=== PATIENT | male | born 1965 | race Two or more races ===

== ENCOUNTER → 2024-09-29 | Outpatient (CLI) | payer BC, SELFPAY ==
--- NOTE | 2024-09-29 11:45 | XR_ITS ---
Examination: Testicular sonography complete Technique: Multiple grayscale sonographic images testes, assessment arterial inflow venous outflow Doppler spectral analysis carful analysis Exam date and time: September 29, 2024 1131 hrs. Indications: Onset left testicular pain and swelling beginning one year ago Findings: Right testis 4.2 x 2.8 x 2.4 cm Epididymis 14 mm Arterial flow testicle. No testicular mass. Mild right lateral varicoceles Left testis 3.8 x 2.1 x 2.7 cm Epididymis 11 mm Arterial flow testicle. No testicular mass Moderate lateral varicoceles Left inguinal hernia with bowel anterior to the left testicle Impression: No testicular torsion or testicular mass Bilateral varicoceles Bowel containing left inguinal hernia
== END | disposition home or self-care (01) ==
PROVIDERS: PCP Physician Assistant; Referring Provider Surgery; Visit Provider Surgery
DX: I86.1 Scrotal varices (principal); K40.90 Unilateral inguinal hernia, without obstruction or gangrene, not specified as recurrent
CPT/HCPCS: 76870

== ENCOUNTER 2025-08-11 13:23 | Emergency (ER) | payer BC, SELFPAY ==
[2025-08-11 14:02] VITALS: BP 160/85; PULSE 97; RESP 20; TEMP 36.7; O2SAT 95
--- NOTE | 2025-08-11 14:02 | XR_ITS ---
Examination: CT abdomen and pelvis without contrast. Coronal 3-D reconstructions. Sagittal 2-D reconstructions. Date and time of exam: August 11, 2025, 1420 hours, comparison April 16, 2024 INDICATIONS: Right-sided flank pain, history left paracentral anterior abdominal wall hernia defect CTDI: vol (mGy): 16.4 DLP: (mGycm): 1152 Technique: Axial images of the abdomen have been obtained, 3 mm slice thickness Intravenous contrast material has not been administered. Low dose protocols were performed. One or more of the following dose reduction techniques were used; automated exposure control, adjustment of the mA and/or KV according to patient size, use of iterative reconstruction technique. Findings: Liver is irregular in contour with fatty infiltration Mildly hyperdense gallbladder Spleen is not enlarged No pancreatic or adrenal mass 8.8 cm left renal cyst No hydronephrosis or ureteral calculi Aorta normal size, tiny subcentimeter para-aortic lymph nodes Again noted anterior abdominal wall hernia defect, 6.2 cm containing bowel but no incarcerated bowel Second more caudad hernia defect, 5.3 cm also containing bowel, axial image 172, early incarceration of the bowel not excluded although no bowel obstruction noted Colonic diverticulosis without definite diverticulitis Marked thickening of the urinary bladder wall up to 8 mm Mild prostatomegaly IMPRESSION: Hernia defects as above, the more caudad hernia defect, axial image 172 contains colon which may be partially incarcerated, clinical correlation advised, recommend surgical consultation
[2025-08-11 14:23] LABS: Collection Type, Urine Clean Catch; Squamous Epithelial Cell,Urine 0 /hpf (0-5)
[2025-08-11 14:27] LABS: Basophils # (Auto) 0.0 Thou/mm3 (0.0-0.2); Basophils % (Auto) 0 % (0-2.5); Eosinophils # (Auto) 0.1 Thou/mm3 (0.0-0.5); Eosinophils % (Auto) 1 % (0-10); Hematocrit 44.9 % (41.0-53.0); Hemoglobin 15.1 g/dL (13.5-16.0); Immature Granulocytes Auto 0.04 Thou/mm3 (0.00-0.00); Lymphocytes # (Auto) 1.7 Thou/mm3 (1.0-4.8); Lymphocytes % (Auto) 26 % (10-50); Mean Corpuscular HGB Conc 33.6 g/dl (31.0-37.0); Mean Corpuscular Hemoglobin 30.6 pg (25.0-35.0); Mean Corpuscular Volume 91 fL (80-100); Monocytes # (Auto) 0.4 Thou/mm3 (0.0-0.8); Monocytes % (Auto) 6 % (0-12); Neutrophils # (Auto) 4.3 Thou/mm3 (1.8-7.7); Neutrophils % (Auto) 65 % (37-80); Nucleated Red Blood Cell # 0.00 Thou/mm3 (0.00-0.00); Nucleated Red Blood Cell % 0 /100 WBC (0); Platelet Count 231 Thou/mm3 (140-440); RDW Standard Deviation 50.7 fL (35.1-43.9); Red Blood Count 4.94 Miln/mm3 (4.50-5.90); White Blood Count 6.6 Thou/mm3 (3.8-10.6)
[2025-08-11 14:32] LABS: Bilirubin,Urine Negative (Negative); Blood,Urine Trace (Negative); Clarity,Urine Clear (Clear/Hazy); Color,Urine Lt-Yellow (Lt Yel-Yel); Culture Indicated,Urine Not Indicated; Glucose, Urine 3+ (Negative); Ketones,Urine Negative (Negative); Leukocyte Esterase,Urine Negative (Negative); Nitrite,Urine Negative (Negative); PH,Urine 6.0 (5.0-7.0); Protein,Urine Trace (Neg - Trace); RBC,Urine 1 /hpf (0-3); Specific Gravity,Urine 1.009 (1.001-1.035); Urobilinogen,Urine Negative mg/dL (0.0-1.0); WBC,Urine < 1 /hpf (0-5)
[2025-08-11] MEDS: KETOROLAC INJ 30 MG/ML VIAL IM (14:36)
[2025-08-11 14:46] LABS: Alanine Aminotransferase 62 U/L (10-49); Albumin, Serum 5.0 gm/dL (3.5-5.0); Albumin/Globulin Ratio 1.4 (1.2-2.2); Alkaline Phosphatase 81 U/L (46-116); Anion Gap 13 (7-16); Aspartate Amino Transferase 59 U/L (0-34); BUN/Creatinine Ratio 8 Ratio (12-20); Bilirubin,Total 0.5 mg/dL (0.3-1.2); Blood Urea Nitrogen < 5 mg/dL (9-23); Calcium 10.0 mg/dL (8.3-10.6); Calcium (Corrected) 10.0 mg/dL (8.5-10.1); Carbon Dioxide 26.0 mMol/L (20.0-31.0); Chloride 102 mMol/L (98-107); Creatinine (Component) 0.6 mg/dL (0.6-1.3); Globulin 3.7 gm/dL (2.3-3.5); Glucose 112 mg/dL (74-106); Lipase 24 U/L (12-53); Osmolality,Calculated 279 (275-295); Potassium 4.5 mMol/L (3.4-5.1); Sodium 141 mMol/L (136-145); Total Protein 8.7 gm/dL (5.7-8.2); eGFR > 60 See Note
--- NOTE | 2025-08-11 15:57 | PD.EDABDPN ---
ED Abdominal Pain RME/HPI General Chief Complaint: Abdominal Pain Stated complaint: RT SIDE ABD PAIN SINCE 5DAYS Time seen by provider: 08/11/25 14:02 Arrival date/time: 08/11/25 13:23 59-year-old male with medical history significant for diabetes, hypertension, hypercholesterolemia with history of previous hernia surgery presents with concerns of right sided abdominal pain ongoing since Saturday Limitations: no limitations Related Data Home Medications ?Medication ?Instructions ?Recorded ?Confirmed hydrochlorothiazide 25 mg tablet 25 mg PO DAILY ##0 05/20/13 11/22/22 atorvastatin 20 mg tablet 20 mg PO QDAY 02/29/20 11/22/22 sitagliptin phos 50 mg-metformin 1 tab PO BID 02/29/20 11/22/22 ER 1,000 mg tablet,extend rel 24h mp (Janumet XR) empagliflozin 10 mg tablet 10 mg PO QAM 05/23/20 11/22/22 (Jardiance) lisinopril 2.5 mg tablet 2.5 mg PO QDAY 11/22/22 11/22/22 Previous Rx's ?Medication ?Instructions ?Recorded ascorbate calcium (vitamin C) 500 500 mg PO BID #60 tabs 05/27/20 mg tablet docusate sodium 100 mg capsule 100 mg PO BID #60 caps 05/27/20 (Colace) hydrocodone 5 mg-acetaminophen 325 1 tab PO Q6H PRN pain #20 tabs 05/27/20 mg tablet ([place]) zinc sulfate 50 mg zinc (220 mg) 220 mg (4.4 x 50 mg zinc (220 mg)) 05/27/20 capsule PO QDAY #30 caps clindamycin HCl 150 mg capsule 450 mg (3 x 150 mg) PO TID #90 caps 06/05/20 hydrocodone 5 mg-acetaminophen 325 1 tab PO BID PRN pain #10 tabs 08/11/25 mg tablet ibuprofen 800 mg tablet 800 mg PO TID PRN pain #30 tabs 08/11/25 Allergies Allergy/AdvReac Type Severity Reaction Status Date / Time No Known Allergies Allergy Verified 07/29/23 11:29 Review of Systems Review of Systems Systems Reviewed: All systems reviewed, normal except as documented Constitutional Constitutional: Reports system reviewed and no additional complaints, except as documented, Denies fever(s) and Denies headache(s) Eyes Eyes: Reports system reviewed and no additional complaints, except as documented and Denies blurry vision ENT Ears, Nose, Mouth, and Throat: Reports system reviewed and no additional complaints, except as documented, Denies headache(s), Denies nasal congestion and Denies nasal discharge Cardiovascular Cardiovascular: Reports system reviewed and no additional complaints, except as documented, Denies chest pain and Denies dyspnea Respiratory Respiratory: Reports system reviewed and no additional complaints, except as documented, Denies chest congestion, Denies cough and Denies dyspnea Gastrointestinal Gastrointestinal: Reports system reviewed and no additional complaints, except as documented and Reports abdominal pain Integumentary/Breasts Skin/Breast: Reports system reviewed and no additional complaints, except as documented and Denies rash Neurologic Neurologic: Reports system reviewed and no additional complaints, except as documented, Reports as per HPI and Denies headache(s) Past Medical History Past Medical History NEUROLOGIC: Negative Neurological Disorders, Cerebrovascular Accident, Transient Ischemic Attacks (TIA) or Seizures CARDIAC: Positive Cardiac Disorders, Hypercholesterolemia and Hypertension; Negative Myocardial Infarction, Cardiac Arrhythmia or Congestive Heart Failure RESPIRATORY: Negative Chronic Obstructive Pulmonary Disease (COPD), Asthma or Emphysema GASTROINTESTINAL: Negative Gastrointestinal Disorders, Liver Cancer or Pancreatic Cancer GENITOURINARY: Negative Genitourinary Disorders or Renal Disease MUSCULOSKELETAL: Negative Musculoskeletal Disorders or Muscular Dystrophy ENT: Negative Blind or Deafness ENDOCRINE: Positive Diabetes Mellitus Type 2; Negative Endocrine Disorders or Diabetes Mellitus Type 1 HEMATOLOGIC: Negative Blood Disorders, Anemia or Sickle Cell Disease PSYCHO/SOCIAL: Negative Psychiatric Problems OTHER HISTORY: Negative Autoimmune Disease, Down Syndrome, Developmental Delay, Blood Transfusions, Blood Transfusion Reaction or Anesthesia Reactions Surgical History SURGICAL: Negative Cardiac Surgery, Endocrine Surgery, Ear Surgery, Abdominal Surgery, Nephrectomy, Joint Replacement, Mastectomy or Vasectomy Social History SMOKING STATUS: Never smoker SUBSTANCE USE: does not use ED Exam General Limitations: Present no limitations General appearance: Present alert and in no apparent distress Head Head exam: Present atraumatic Eye Eye exam: Present normal appearance, PERRL and EOMI ENT ENT exam: Present normal exam, normal oropharynx and mucous membranes moist Neck Neck exam: Present normal inspection, full ROM and trachea midline Chest Chest inspection: Present normal inspection and symmetric chest wall rise Respiratory Respiratory exam: Present normal lung sounds bilaterally Cardiovascular Cardiovascular exam: Present regular rate, normal rhythm and normal heart sounds Abdominal Exam Abdominal exam: Present soft, tenderness and normal bowel sounds; Absent distention, guarding, rebound, rigidity, Almeida's sign or tenderness at McBurney's Point Abdominal tenderness: Present RLQ Extremities Exam Extremities exam: Present normal inspection and full ROM Back Exam Back exam: Present normal inspection and full ROM Neurological Exam Neurological exam: Present alert, oriented X3 and CN II-XII intact Psychiatric Psychiatric exam: Present normal affect and normal mood Skin Skin exam: Present warm, dry, intact and normal color Course Quality Measures none Orders Category Date Time Status Consult to General Surgery Stat Cons 08/11/25 16:[address] abdomen pelvis wo con Stat Exams 08/11/25 14:02 Completed CBC Stat Lab 08/11/25 14:08 Completed Comprehensive Metabolic Panel Stat Lab 08/11/25 14:08 Completed Lipase Stat Lab 08/11/25 14:08 Completed UA, C/S IF [Urinalysis, C/S if Indicated] Stat Lab 08/11/25 14:15 Completed Ketorolac Inj [Toradol Inj] Med 08/11/25 14:02 Discontinued 30 mg IM X1 ONE Vital Signs Vital signs: Vital Signs Temperature 98.0 F 08/11/25 14:02 Pulse Rate 97 08/11/25 14:02 Respiratory Rate 20 08/11/25 14:02 Blood Pressure 160/85 H 08/11/25 14:02 Pulse Oximetry (%) 95 08/11/25 14:02 Oxygen Delivery Method Room Air 08/11/25 14:02 O2 saturation 95% room air within normal limits Abdominal Pain MDM MDM Narrative MDM Narrative:: 59-year-old male with medical history significant for diabetes, hypertension, hypercholesterolemia with history of previous hernia surgery presents with concerns of right sided abdominal pain ongoing since Saturday On exam patient does not appear ill or toxic in no acute distress Lab work and imaging obtained I reviewed the patient's labs and imaging Consultation: I spoke with Dr Vásquez who came to evaluate the patient he felt the patient to be discharged home at this time did not any acute intervention surgically At time of discharge patient well-appearing does not appear ill or toxic no acute distress Patient data External records reviewed:: [facility] previous records Clinical information provided by:: patient Social determinants that could affect healthcare access:: none Patient has the following chronic illnesses:: None How is presenting disease/condition affected by chronic disease/condition?: no chronic disease Evaluation data The following diagnostics were reviewed and interpreted by me:: lab results and radiology exam(s) Lab and/or radiology exams considered but not ordered:: Labs radiology obtained Interpretation Summary: By me Medications / Prescriptions Medications or Prescriptions considered but not ordered:: Given Medication administrations:: Medication Administration History Discontinued Medications Ketorolac Tromethamine (Ketorolac Inj 30 Mg/Ml Vial) 30 mg IM X1 ONE Stop: 08/11/25 14:03 Last Admin: 08/11/25 14:36 Dose: 30 mg Documented By: GM Given Consultations Consultation(s) initiated? (list below): Yes Consultation #1 (Physician, Specialty, Details): Dr Vásquez Surgeon Diagnosis Differential diagnosis abdominal pain: abdominal pain, acute appendicitis, pancreatitis and small bowel obstruction Most likely diagnosis given after review of the tests above:: Abdominal pain Admission Indicated Admission indicated?: not indicated Admission Request Was there a request for admission?: No Disposition Plan Disposition Plan: Discharge Discharge Attestation Discharge Attestation: The patient and all family members were given an opportunity to ask questions and understood the discharge instructions. Discharge instructions specifically effects, indications for sooner follow up or return to the emergency department, and the expected course of current diagnosis. Patient condition: Stable Discharge Plan Plan Patient Disposition: HOME (Self Care) Discharge Disposition comment: Stable Prescriptions/Referrals Prescriptions/Med Rec: New ibuprofen 800 mg tablet 800 mg PO TID PRN (Reason: pain) Qty: 30 0RF hydrocodone-acetaminophen 5-325 mg tablet 1 tab PO BID MDD 10 PRN (Reason: pain) Qty: 10 0RF No Action atorvastatin 20 mg tablet 20 mg PO QDAY Janumet XR 50-1,000 mg tablet, ER multiphase 24 hr 1 tab PO BID lisinopril 2.5 mg tablet 2.5 mg PO QDAY hydrochlorothiazide 25 MG tablet 25 mg PO DAILY Qty: 0 Jardiance 10 mg Tablet 10 mg PO QAM docusate sodium [Colace] 100 mg capsule 100 mg PO BID Qty: 60 0RF hydrocodone-acetaminophen [[place]] 5-325 mg tablet 1 tab PO Q6H MDD 4 PRN (Reason: pain) Qty: 20 0RF ascorbate calcium (vitamin C) 500 mg tablet 500 mg PO BID Qty: 60 0RF zinc sulfate 220 (50) mg capsule 220 mg PO QDAY Qty: 30 0RF clindamycin HCl 150 mg capsule 450 mg PO TID Qty: 90 0RF Referrals: Raphael Elder MD [Primary Care Provider, Family Practice] - In 1 week Problem List Clinical Impression: Abdominal hernia Patient/Caregiver Discharge Instructions Education Materials: ED Hernia (Adult) Additional Instructions: Please follow up with your primary care doctor in the next 24-48hrs for any worsening symptoms return here immediately Print Language: Armenian Stand Alone Forms: Victoria Award Info., Work/School Release, Patient Portal Info Letter PA/[employer]ODUCTION MANAGER Supervising Physician PA/SINDI Supervising Physician: dr kemp
== END 2025-08-11 16:15 | disposition home or self-care (01) ==
PROVIDERS: Emergency Provider Nurse Practitioner Primary Care; PCP Family Medicine
DX: K46.9 Unspecified abdominal hernia without obstruction or gangrene (principal)
CPT/HCPCS: 36415; 74176; 80053; 81001; 83690; 85025; 96372; 99283; J1885